=== PATIENT | male | born 1995 | race Two or more races ===

== ENCOUNTER 2018-10-06 09:41 | Emergency (ER) | payer BC, OTHER ==
[~2018-10-06] VITALS: Ht 162.6 cm; Wt 63.5 kg
[2018-10-06 09:50] VITALS: BP 127/79
[2018-10-06] MEDS ORDERED: DEXAMETHASONE SOD PHOS 10MG/1ML VIAL INJ IM ONE (12:00)
[2018-10-06] MEDS ORDERED: KETOROLAC TROMETH 60MG/2ML VIAL IM ONE (12:00)
== END 2018-10-06 12:18 | disposition home or self-care (01) ==
LOC: ER 09:41
DX: R07.89 Other chest pain (principal); R09.3 Abnormal sputum; F12.10 Cannabis abuse, uncomplicated; M94.0 Chondrocostal junction syndrome [Tietze]
CPT/HCPCS: 71046; 93005; 96372; 99283; J1100; J1885

== ENCOUNTER 2018-10-07 03:45 | Emergency (ER) | payer BC, OTHER ==
[~2018-10-07] VITALS: Ht 162.6 cm; Wt 63.5 kg
[2018-10-07] MEDS ORDERED: ASPirin 81 mg TAB PO ONE (06:45)
[2018-10-07 07:34] LABS: Basophils # (auto) 0 uL; Basophils % (auto) 0.3 % (0.0-2.0); Eosinophils # (auto) 0 uL; Hematocrit 43.5 % (41.0-53.0); Hemoglobin 14.2 g/dL (13.5-17.5); Lymphocytes # (auto) 1.6 uL; Lymphocytes % (auto) 11.6 % (10.0-50.0); Mean Corpuscular Hemoglobin 28.8 pg (28.0-32.0); Mean Corpuscular Hgb Conc. 32.6 g/dL (32.0-36.0); Mean Corpuscular Volume 88.4 fL (80.0-100.0); Monocytes % (auto) 7.1 % (0.0-12.0); Neutrophils # (auto) 10.9 uL; Platelet Count (auto) 248 10^3/uL (140-450); Red Blood Cells 4.92 10^6/uL (4.5-5.90); Red Cell Distribution Width 13.5 % (11.8-14.3); White Blood Cell 13.5 10^3/uL (4.4-10.8)
[2018-10-07 07:57] LABS: Albumin 4.2 g/dL (3.4-5.0); Anion Gap 5 (5-15); Blood Urea Nitrogen 14 mg/dL (7-18); Calcium 8.7 mg/dL (8.5-10.1); Carbon Dioxide 25 mmol/L (21-32); Chloride 108 mmol/L (98-107); Glucose 109 mg/dL (74-106); Potassium 4.2 mmol/L (3.5-5.1); Sodium 138 mmol/L (136-145)
[2018-10-07 08:04] LABS: Alanine Aminotransferase 25 U/L (16-61); Alkaline Phosphatase 75 U/L (45-117); Aspartate Aminotransferase 16 U/L (15-37); BUN/Creatinine Ratio 18.2; Bilirubin, Total 0.3 mg/dL (0.2-1.0); GFR African American 162 mL/min; GFR Non-African American 134 mL/min; Total Protein 7.3 g/dL (6.4-8.2)
[2018-10-07 10:08] VITALS: BP 123/68
== END 2018-10-07 10:09 | disposition home or self-care (01) ==
LOC: ER 03:49
DX: R00.2 Palpitations (principal); J40 Bronchitis, not specified as acute or chronic
CPT/HCPCS: 36415; 71045; 80053; 84443; 84484; 85025; 93005

== ENCOUNTER 2021-04-12 12:05 | Emergency (ER) | payer BC, OTHER ==
[~2021-04-12] VITALS: Ht 160 cm; Wt 63.5 kg
[2021-04-12 13:25] VITALS: BP 127/82
[2021-04-12] MEDS ORDERED: LIDOCAINE 1% HCL (LOCAL ANESTH.) INJ 20ML MDV IJ ONE (14:30)
[2021-04-12] MEDS ORDERED: ONDANSETRON ODT 4 MG TAB PO ONE (15:15)
[2021-04-12] MEDS ORDERED: HYDROcodone-ACET 5/325MG TAB PO ONE (15:15)
== END 2021-04-12 16:36 | disposition home or self-care (01) ==
LOC: ER 12:05
DX: S62.625A Displaced fracture of middle phalanx of left ring finger, initial encounter for closed fracture (principal); X58.XXXA Exposure to other specified factors, initial encounter; Y93.89 Activity, other specified; Y92.89 Other specified places as the place of occurrence of the external cause; Y99.8 Other external cause status
CPT/HCPCS: 73140; 99283; J2001; Q0162

== ENCOUNTER 2021-06-06 11:44 | Emergency (ER) | payer OTHER ==
[~2021-06-06] VITALS: Ht 162.6 cm; Wt 63.5 kg
[2021-06-06 14:12] VITALS: BP 129/82
== END 2021-06-06 16:40 | disposition home or self-care (01) ==
LOC: ER 11:44
DX: S63.285A Dislocation of proximal interphalangeal joint of left ring finger, initial encounter (principal); X58.XXXA Exposure to other specified factors, initial encounter; Y93.89 Activity, other specified; Y92.89 Other specified places as the place of occurrence of the external cause; Y99.8 Other external cause status
CPT/HCPCS: 26770; 73130; 73140